=== PATIENT | female | born 1975 | race Caucasian/White ===

== ENCOUNTER 2017-04-21 13:07 | Outpatient (CLI) | payer BC ==
[~2017-04-21] VITALS: Ht 152.4 cm; Wt 74.1 kg
[2017-04-21 13:10] VITALS: BP 137/90; PULSE 103; RESP 18; Ht 152.4 cm; Wt 74.1 kg
--- NOTE | 2017-04-21 17:48 | PN ---
Date/Time of Note Date/Time of Note DATE: 04/21/17 TIME: 17:32 Assessment/Plan Assessment/Plan Assessment/Plan [facility] Progress Note Date of Service: 04/21/17 Place of Service: [facility] Today's Impression & Plan: Overall stable and doing well. No obvious post operative complications. No wound issues. 1. F/u with PCP 2. F/u with us prn Thank you very much for allowing us to participate in the care of this very nice patient and wonderful family. If there are any questions, please feel free to contact me at . Please note: Spelling or grammatical errors in this note are likely due to EHR/ dictation systems and are not reflective of patient care quality. Also please note that the dictation timestamp of this note does not necessarily reflected time of the visit for this service. Updated Clinical Summary: A very pleasant 41-year-old without significant comorbidities admitted through the emergency department at [facility] on 03/15/2017 with a clinical picture consistent with acute appendicitis. S/p lap appy [facility] . Final path: acute appy; no malignancy Comorbiditis: 1. Acute appendicitis, s/p lap appy [facility] 03/16/17. Final path: acute appy; no malignancy 2. Migraine headaches. 2 or 3 times per week. Treated with methotrexate. Father and sister also have migraine headaches. Brain MRI 2016 showed no mass per patient's report. 3. Laparoscopic exploration for reported benign uterine disease 4. BMI 31.9 04/21/17 [facility] (previously 25.20 Mar 2017 [facility]) Subjective: No major events or complaints since discharge. No major pain complaints and not on pain medications. No N/V, SOB or CP. + bowel activity Objective: Vitals: reviewed; please also see EHR Physical Exam: Lungs: breathing comfortably without tachypnea; no audible wheezes, rales or rhonchi on gross exam Abd: Soft, non-tender, and non-distended; no peritoneal signs or guarding. Incision dressings c/d/i w/o obvious underlying e/e/d/h Skin: Appears pink and feels warm to touch. Neuro: Awake, alert and follows commands appropriately Exam/Review of Systems Vital Signs Vitals Vital Signs Date Time Temp Pulse Resp B/P Pulse Ox O2 Delivery O2 Flow Rate FiO2 04/21/17 13:10 98.0 103 18 137/90 100 Room Air YENNY REHMAN M.D. Apr 21, 2017 17:48
== END 2017-04-21 17:00 | disposition home or self-care (01) ==
LOC: HPC 13:07
PROVIDERS: ATTEND Transplant Surgery
DX: Z09 Encounter for follow-up examination after completed treatment for conditions other than malignant neoplasm (principal); K35.80 Unspecified acute appendicitis
CPT/HCPCS: G0463